=== PATIENT | male | born 1965 | race Caucasian/White ===

== ENCOUNTER → 2017-01-23 | Outpatient (CLI) | payer OTHER ==
[~2017-01-23] MED LIST: HYDR25TA5; META-38 PO; NPR250
--- NOTE | 2017-01-23 18:12 | DIAGNOSTIC IMAGING REPORT ---
ULTRASOUND LEFT VENOUS DOPP LOWER EXT UNILAT CLINICAL HISTORY: R60.0,M79.662 LEFT LEG PAIN AND SWELLING COMPARISON STUDY: No previous studies for comparison. FINDINGS: Real-time and color flow Doppler imaging were performed. Flow was seen within the femoral, popliteal and calf veins with no intraluminal thrombus demonstrated. The saphenous vein is patent. IMPRESSION: No evidence of left lower extremity DVT. Electronically signed by: Jamel Ruiz M.D. 01/23/2017 6:10 PM Dictated Date/Time: 01/23/2017 6:10 PM
== END | disposition home or self-care (01) ==
LOC: C.ULTR 17:43
PROVIDERS: ATTEND Family Medicine
DX: R60.0 Localized edema (principal); M79.662 Pain in left lower leg

== ENCOUNTER → 2017-10-12 | Day surgery (SDC) | payer OTHER ==
[2017-10-05 08:12] VITALS: Ht 195.6 cm; Wt 215.9 kg
[~2017-10-12] VITALS: Ht 195.6 cm; Wt 215.9 kg
[~2017-10-12] MED LIST changes: +ATROPINE SULFATE 0.1 MG/ML 5ML SYR IV PRN; +EpHEDrine SULFATE INJ 50 MG/ML AMP IV PRN; -HYDR25TA5; +HYDR25TA5 PO; +LIDOCAINE HCL 2% 2 ML VIAL (20MG/ML) ONE; -META-38 PO; +MIDAZOLAM HCL 1 MG/ML 2ML VIAL ONE; +MULT-506 PO; +NAPR-1007 PO; -NPR250; +ONDANSETRON INJ 2 MG/ML 2 ML VIAL ONE; +PROPOFOL IV EMULSION 10 MG/ML 20 ML VIAL IV ONE; +SODIUM CHLORIDE 0.9% 500ML 500 ML IV ONE
--- NOTE | 2017-10-12 08:41 | Endo History and Physical ---
History & Physical Date of Service: Oct 12, 2017. Chief Complaint: screening,family history of colon cancer Referring Physician: Dr. Sophie Gaines History of Present Illness patient with family hx of colon cancer. Past Surgical History Hx Cardiac Surgery: No Hx Internal Defibrillator: No Hx Pacemaker: No Hx Abdominal Surgery: No Hx of Implantable Prosthesis: No Hx Cancer Surgery: No Hx Thoracic Surgery: No Hx Orthopedic: Yes (LT HAND CYSTECTOMY (LOCAL)) Hx Urinary Tract Surgery: Yes (VASECTOMY (LOCAL)) Family History Colon CA Social History Smoking Status: Never Smoker Hx Substance Use: No Hx Alcohol Use: No Allergies Coded Allergies: No Known Allergies (Verified , 10/12/17) Current Medications Reported Home Medications Medications Dose Route/Sig Max Daily Dose Days Date Category Multivitamin (Multivitamins) Tab 1 Tab PO QAM 10/05/17 Reported Naproxen Sodium 500 Mg Tab 1 Tab PO DAILY PRN 10/05/17 Reported Hydrochlorothiazide 25 Mg Tab 1 Tab PO QAM 07/07/15 Reported Vital Signs Weight (Kilograms): 215.91 Height (Feet): 6 Height (Inches): 5 Date Time Temp Pulse Resp B/P (MAP) Pulse Ox O2 Delivery O2 Flow Rate FiO2 10/12/17 08:06 36.7 73 20 163/93 (116) 98 Room Air Physical Exam General Appearance: no apparent distress Respiratory/Chest: Auscultation: breath sounds normal Cardiovascular: Heart Auscultation: RRR Abdomen: Inspection & Palpation: soft Liver: non-tender Assessment and Plan stable for colonoscopy.
--- NOTE | 2017-10-12 09:17 | Discharge Instructions ---
Endoscopy Patient Instructions Date / Procedure(s) Performed Oct 12, 2017. Colonoscopy Allergy Information Coded Allergies: No Known Allergies (Verified , 10/12/17) Discharge Date / Findings Oct 12, 2017. Normal colonoscopy. Medication Instructions Stopped Medication(s): stopped MVI 5 days ago Provider Instructions Activity Restrictions - No exercising or heavy lifting for 24 hours. - Do not drink alcohol the day of the procedure. - Do not drive a car or operate machinery until the day after the procedure. - Do not make any important decisions or sign important papers in 24 hours after the procedure. Following Day: - Return to full activity which may include returning to work/school. Diet Start your diet with liquids and light foods (jello, soup, juice, toast). Then eat your usual diet if not nauseated. Treatment For Common After Affects For mild abdominal pain, bloating, or excessive gas: - Rest - Eat lightly - Lie on right side Follow-Up Information Follow-up with Dr. Sophie Gaines as scheduled Anesthesia Information What You Should Know You have had a procedure that required some medicine to reduce anxiety and discomfort. This treatment is called moderate sedation. After receiving the treatment, you may be sleepy, but you will be able to breathe on your own. The effects of the treatment may last for several hours. Follow these instructions along with Activity/Diet recommendations noted above: * Do NOT do anything where dizziness or clumsiness would be dangerous. * Rest quietly at home today, then you can be up and about tomorrow. * Have a responsible person stay with you the rest of today. * You may have had an I.V. today. If so, you may take the dressing off later today. Recommendations Call your doctor if: * Trouble breathing * Continuous vomiting for more than 24 hours * Temperature above 101 degrees * Severe abdominal pain or bloating * Pain not relieved by pain medicine ordered * There is increased drainage or redness from any incision * A large amount of rectal bleeding greater than 2-3 tablespoons. (If you had a polyp/s removed or have hemorrhoids, a small amount of blood - from the rectum is to be expected.) * You have any unanswered questions or concerns. IN THE EVENT OF A SERIOUS EMERGENCY, GO TO THE NEAREST EMERGENCY ROOM Your discharge instructions were prepared by provider Sarthak Villa. Patient Instructions Signature Page Bryan Cho Patient (or Guardian) Signature/Date: I have read and understand the instructions given to me by my caregivers. Caregiver/RN/Doctor Signature/Date: The above-named patient and/or guardian has received patient instructions on this date. + Original Patient Signature Page (only) stays with chart. Please make copy for patient.
[2017-10-12 09:19] VITALS: BP 160/90; PULSE 64; O2SAT 98
--- NOTE | 2017-10-12 09:26 | Anesthesiology Progress Note ---
Anesthesia Progress Note Date of Service Oct 12, 2017. Progress Notes Anesthesia staff was not involved in the care of this patient, as his wishes were to have the procedure without anesthesia.
--- NOTE | 2017-10-12 13:59 | GI REPORT ---
Procedure Date: 10/12/2017 8:53 AM Procedure: Colonoscopy Indications: Family history of colon cancer in a first-degree relative Medicines: None Complications: No immediate complications. Estimated Blood Loss: Estimated blood loss: none. Procedure: Pre-Anesthesia Assessment: - Prior to the procedure, a History and Physical was performed, and patient medications, allergies and sensitivities were reviewed. The patient's tolerance of previous anesthesia was reviewed. - The risks and benefits of the procedure and the sedation options and risks were discussed with the patient. All questions were answered and informed consent was obtained. - Patient identification and proposed procedure were verified prior to the procedure by the physician and the nurse. The procedure was verified in the pre-procedure area. - Pre-procedure physical examination revealed no contraindications to sedation. - After reviewing the risks and benefits, the patient was deemed in satisfactory condition to undergo the procedure. After I obtained informed consent, the scope was passed under direct vision. Throughout the procedure, the patient's blood pressure, pulse, and oxygen saturations were monitored continuously. The scope was introduced through the anus and advanced to the terminal ileum, with identification of the appendiceal orifice and IC valve. The colonoscopy was performed without difficulty. The patient tolerated the procedure well. The quality of the bowel preparation was good. Findings: The perianal and digital rectal examinations were normal. The terminal ileum appeared normal. The entire examined colon appeared normal on direct and retroflexion views. Impression: - The examined portion of the ileum was normal. - The entire examined colon is normal on direct and retroflexion views. - No specimens collected. Recommendation: - Repeat colonoscopy in 5 years for screening purposes. - Discharge patient to home. Sarthak Villa M.D. Sarthak Villa MD 10/12/2017 9:28:35 AM This report has been signed electronically. Note Initiated On: 10/12/2017 8:53 AM I attest to the content of the Intraoperative Record and orders documented therein, exceptions below
== END | disposition home or self-care (01) ==
LOC: C.GI 07:29
PROVIDERS: ATTEND Internal Medicine Gastroenterology
DX: Z12.11 Encounter for screening for malignant neoplasm of colon (principal); Z80.0 Family history of malignant neoplasm of digestive organs; Z98.52 Vasectomy status